=== PATIENT | female | born 1985 | race Caucasian/White ===

== ENCOUNTER 2019-09-16 22:11 | Emergency (ER) | payer MEDICAID ==
[~2019-09-16] VITALS: Ht 160 cm; Wt 68.2 kg
[2019-09-16 22:55] VITALS: BP 120/70
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
[2019-09-16] MEDS ORDERED: KETOROLAC 60 MG/2 ML VIAL. IM ONE (23:55)
[2019-09-16] MEDS ORDERED: traMADol 50 MG TABLET PO ONE (23:55)
== END 2019-09-16 23:51 | disposition home or self-care (01) ==
LOC: ER 22:11
DX: G89.29 Other chronic pain (principal); F17.210 Nicotine dependence, cigarettes, uncomplicated; Z88.0 Allergy status to penicillin; Z88.4 Allergy status to anesthetic agent
CPT/HCPCS: 96372; 99283; J1885